=== PATIENT | male | born 1965 | race Two or more races ===

== ENCOUNTER → 2024-02-16 11:23 | Outpatient (REF) | payer OTHER, SELFPAY | LOC: RAD 11:23 | PROVIDERS: ATTENDING PHYSICIAN Family Medicine | DX: M79.645 Pain in left finger(s) (principal); S91.339A Puncture wound without foreign body, unspecified foot, initial encounter | CPT/HCPCS: 73130; 73630 ==

== ENCOUNTER → 2025-03-06 14:20 | Outpatient (REF) | payer SELFPAY | LOC: HWRAD 14:20 | PROVIDERS: ATTENDING PHYSICIAN Physician Assistant; FAMILY PHYSICIAN Family Medicine | DX: E78.5 Hyperlipidemia, unspecified (principal) | CPT/HCPCS: 75571 ==

== ENCOUNTER → 2025-03-11 11:08 | Outpatient (REF) | payer BC, SELFPAY | LOC: RAD 11:08 | PROVIDERS: ATTENDING PHYSICIAN Physician Assistant; FAMILY PHYSICIAN Family Medicine | DX: E78.5 Hyperlipidemia, unspecified (principal) | CPT/HCPCS: 93880 ==